=== PATIENT | male | born 1970 | race Hispanic/Latino ===

== ENCOUNTER 2019-10-17 09:49 | Emergency (ER) | payer SELFPAY ==
[~2019-10-17] VITALS: Ht 152.4 cm; Wt 70.0 kg
[~2019-10-17 09:49] MED LIST: CETIRIZINE10 MG PO; LEVOTHYROXIN112 MCG PO; PRILOSEC40 MG PO; PROTONIX40 MG PO
[2019-10-17] MEDS ORDERED: ZITHROMAX500 MG PO (13:39)
[2019-10-17 14:05] VITALS: BP 132/77
== END 2019-10-17 14:05 | disposition home or self-care (01) | DRG 179 ==
LOC: ED 09:49
DX: U07.1 COVID-19 (principal)

== ENCOUNTER 2020-12-09 21:22 | Emergency (ER) | payer SELFPAY ==
[~2020-12-09] VITALS: Ht 165.1 cm; Wt 81.0 kg
[~2020-12-09 21:22] MED LIST changes: +ZITHROMAX500 MG PO
[2020-12-09] MEDS ORDERED: KEFLEX500 MG PO (23:31)
[2020-12-10 00:18] VITALS: BP 113/70
== END 2020-12-10 00:18 | disposition home or self-care (01) | DRG 605 ==
LOC: ED 21:22
DX: S51.832A Puncture wound without foreign body of left forearm, initial encounter (principal); W01.0XXA Fall on same level from slipping, tripping and stumbling without subsequent striking against object, initial encounter; Y92.007 Garden or yard of unspecified non-institutional (private) residence as the place of occurrence of the external cause